=== PATIENT | male | born 1965 | race Caucasian/White ===

== ENCOUNTER 2018-10-10 17:35 | Inpatient (IN) | payer OTHER ==
[~2018-10-10] VITALS: Ht 185.4 cm; Wt 118.4 kg
[2018-10-10] MEDS ORDERED: methylPREDNISolone SOD SUCC 125 MG/2 ML VL IV ONE (18:00)
[2018-10-10] MEDS ORDERED: diphenhdrAMINE HCL 50 MG/1 ML VL IV ONE (18:00)
[2018-10-10 18:42] LABS: Albumin 3.6 g/dL (3.4-5.0); Calcium 9.1 mg/dL (8.5-10.1)
[2018-10-10 18:44] LABS: Basophils # (auto) 0.1 uL; Basophils % (auto) 0.9 % (0.0-2.0); Eosinophils # (auto) 0.3 uL; Eosinophils % (auto) 2.9 % (0.0-7.0); Hematocrit 47.5 % (41.0-53.0); Hemoglobin 15.9 g/dL (13.5-17.5); Lymphocytes # (auto) 2.5 uL; Lymphocytes % (auto) 26.4 % (10.0-50.0); Mean Corpuscular Hemoglobin 30.9 pg (28.0-32.0); Mean Corpuscular Hgb Conc. 33.5 g/dL (32.0-36.0); Mean Corpuscular Volume 92.3 fL (80.0-100.0); Monocytes # (auto) 0.9 uL; Monocytes % (auto) 9.5 % (0.0-12.0); Neutrophils # (auto) 5.8 uL; Neutrophils % (auto) 60.3 % (37.0-80.0); Platelet Count (auto) 329 10^3/uL (140-450); Red Blood Cells 5.15 10^6/uL (4.5-5.90); White Blood Cell 9.6 10^3/uL (4.4-10.8)
[2018-10-10 18:50] LABS: BUN/Creatinine Ratio 15.2; Bilirubin, Total 0.3 mg/dL (0.2-1.0); Total Protein 8.4 g/dL (6.4-8.2)
[2018-10-10 20:06] LABS: Potassium 6.4 mmol/L (3.5-5.1)
[2018-10-10] MEDS ORDERED: SODIUM BICARBONATE 8.4% INJ 50ML SYRINGE IV ONE (20:45)
[2018-10-10] MEDS ORDERED: InsuLIN REG 1unit/0.01ml Soln (100units/ml) IV ONE (20:45)
[2018-10-10] MEDS ORDERED: DEXTROSE (50%) 50ML SYRG IV ONE (20:45)
[2018-10-10] MEDS ORDERED: TEMAZEPAM 15 MG CAP PO PRN (22:30)
[2018-10-10] MEDS ORDERED: diphenhdrAMINE HCL 25 MG CAP PO PRN (22:30)
[2018-10-10] MEDS ORDERED: DOCUSATE SOD 100 MG CAP PO PRN (22:30)
[2018-10-10] MEDS ORDERED: ACETAMINOPHEN 500 MG TAB PO PRN (22:30)
[2018-10-10] MEDS ORDERED: ONDANSETRON HCL 4 MG/2 ML VIAL IV PRN (22:30)
[2018-10-10 23:00] LABS: Urine WBC None Seen /hpf (0 - 3)
[2018-10-10 23:08] LABS: Urine Bacteria NONE SEEN /hpf (None Seen); Urine Blood Negative /uL (Negative); Urine Specific Gravity 1.024 (1.001-1.035)
[2018-10-11 00:05] VITALS: BP 151/77
--- NOTE | 2018-10-11 00:05 | NUR ---
Telemetry admit from ER MELITA DILLARD admitted to Telemetry unit after SBAR received. Patient oriented to NOLA YATES RN primary RN, unit, room, bed, and unit policies regarding patient care and visiting hours. Patient now on continuous telemetry monitoring, tele box # [id number] and telemetry reading on arrival to unit is Sinus Tachy at 107BPM. Patient placed on bedside oxygen, weighed by bed scale and encouraged to call if they need something. All questions and concerns addressed, patient verbalized understanding. Note: Patient is alert and oriented, ambulatory, no distress noted and denies pain. Patient has redness to neck, back of bilateral knees, bilateral upper extremities.
[2018-10-11 05:25] VITALS: BP 130/85
--- NOTE | 2018-10-11 06:27 | NUR ---
Patient is resting in bed alert and awake, no distress noted, and patient denies pain, saturating at 93%. Patient signed belongings inventory.
[2018-10-11 07:22] LABS: Potassium 3.9 mmol/L (3.5-5.1)
[2018-10-11 07:25] LABS: BUN/Creatinine Ratio 21.1; Calcium 9.1 mg/dL (8.5-10.1)
--- NOTE | 2018-10-11 07:30 | NUR ---
Opening Shift Note Assuming care of patient at this time. Patient is awake and alert. Patient is resting in bed. Bed is locked and lowered with side rails up x2. Patient denies pain at this time. Patient shows no signs or symptoms of shortness of breath. Instructed patient on the plan of care for today and to call for assistance as needed. Call light within reach. Will continue to round hourly and as needed.
--- NOTE | 2018-10-11 08:30 | NUR ---
at bedside is at bedside at this time. Patient is on the phone, laughing and joking.
[2018-10-11 09:00] VITALS: BP 135/78
[2018-10-11] MEDS ORDERED: FAMOTIDINE 20 MG TAB PO SCH (10:00)
--- NOTE | 2018-10-11 10:00 | NUR ---
Call to pharmacy Call to pharmacy at this time. Kenalog ointment will be sent up in the bullet.
[2018-10-11] MEDS ORDERED: methylPREDNISolone SOD SUCC 40 MG/ML VL IV ONE (11:15)
[2018-10-11] MEDS: TRIAMCINOLONE ACET0.5% TOPICAL CRE 15GM TOP SCH (11:59)
[2018-10-11 17:00] VITALS: BP 132/77
--- NOTE | 2018-10-11 19:15 | NUR ---
Opening Shift Note Assuming care of patient at this time after receiving report from Lucila CARDENAS. Patient is awake and alert. Patient is resting in bed. Bed is locked and lowered with side rails up x2. Patient denies pain at this time. Patient shows no signs or symptoms of shortness of breath. Instructed patient on the plan of care for today and to call for assistance as needed. Call light within reach. Will continue to round hourly and as needed.
--- NOTE | 2018-10-11 19:51 | NUR ---
Re: Closing Shift Note Patient denies pain. Patient shows no signs of distress or shortness of breath. Report given. Will endorse care to the second shift supervisor RN.
[2018-10-11 22:00] VITALS: BP 126/81
[2018-10-11] MEDS: methylPREDNISolone SOD SUCC 40 MG/ML VL IV SCH (22:01)
[2018-10-11] MEDS: FAMOTIDINE 20 MG TAB PO SCH (22:01)
--- NOTE | 2018-10-12 04:47 | NUR ---
ROUNDS PATIENT RESTING IN BED COMFORTABLY WITH EVEN AND UNLABORED RESPIRATIONS AT 18 BPM. NO S/S OF PAIN OR DISTRESS. CALL LIGHT WITH IN REACH.
[2018-10-12 06:00] VITALS: BP 134/79
--- NOTE | 2018-10-12 06:42 | NUR ---
ROUNDS PATIENT AWAKE AND ALERT, DENIES ANY PAIN OR DISCOMFORT. CALL LIGHT WITHIN REACH.
[2018-10-12 08:15] LABS: Anion Gap 10 (5-15); BUN/Creatinine Ratio 22.2; Blood Urea Nitrogen 18 mg/dL (7-18); Calcium 8.6 mg/dL (8.5-10.1); Carbon Dioxide 23 mmol/L (21-32); Chloride 107 mmol/L (98-107); GFR African American 129 mL/min; GFR Non-African American 107 mL/min; Glucose 134 mg/dL (74-106); Potassium 4.3 mmol/L (3.5-5.1); Sodium 140 mmol/L (136-145)
[2018-10-12 08:17] LABS: Basophils # (auto) 0.1 uL; Basophils % (auto) 0.4 % (0.0-2.0); Eosinophils # (auto) 0 uL; Eosinophils % (auto) 0.1 % (0.0-7.0); Hematocrit 47.4 % (41.0-53.0); Hemoglobin 15.4 g/dL (13.5-17.5); Lymphocytes # (auto) 1.5 uL; Lymphocytes % (auto) 6.8 % (10.0-50.0); Mean Corpuscular Hgb Conc. 32.5 g/dL (32.0-36.0); Mean Corpuscular Volume 92.5 fL (80.0-100.0); Monocytes # (auto) 0.8 uL; Monocytes % (auto) 3.6 % (0.0-12.0); Neutrophils # (auto) 19.3 uL; Neutrophils % (auto) 89.1 % (37.0-80.0); Nucleated Red Blood Cells % 0.1 %; Platelet Count (auto) 363 10^3/uL (140-450); Red Blood Cells 5.12 10^6/uL (4.5-5.90); White Blood Cell 21.7 10^3/uL (4.4-10.8)
[2018-10-12 09:00] VITALS: BP 116/69
[2018-10-12] MEDS: TRIAMCINOLONE ACET0.5% TOPICAL CRE 15GM TOP SCH (10:00)
[2018-10-12] MEDS: FAMOTIDINE 20 MG TAB PO SCH (10:00)
[2018-10-12] MEDS: methylPREDNISolone SOD SUCC 40 MG/ML VL IV SCH (10:00)
[2018-10-12 12:08] VITALS: BP 132/77
[2018-10-12] MEDS ORDERED: FAM20T PO (12:36)
[2018-10-12] MEDS ORDERED: DIPH25TA54 PO (12:36)
[2018-10-12] MEDS ORDERED: METH4PAK PO (12:38)
--- NOTE | 2018-10-12 13:31 | NUR ---
Discharge Discharge instructions given as ordered. Encourage to follow up with PMD as instructed. All questions and concerns addressed. Patient verbalized understanding. IV removed with catheter intact, pressure dressing applied. Telemetry unit returned to [facility] yesterday when patient was downgraded to med surg. Patient ambulated to vehicle, refusing wheelchair, with all personal belongings, accompanied by family member. No distress noted at time of departure.
== END 2018-10-12 13:30 | disposition home or self-care (01) | DRG 385 ==
LOC: ER 17:38 → TELE 17:39 → TELE-CENTR 23:24 → CENTRAL 10-11 11:10
PROVIDERS: ADMIT Nurse Practitioner Family; ATTEND Internal Medicine
DX: L23.9 Allergic contact dermatitis, unspecified cause (principal); E87.5 Hyperkalemia; I10 Essential (primary) hypertension; E66.9 Obesity, unspecified; Z82.49 Family history of ischemic heart disease and other diseases of the circulatory system; Z79.899 Other long term (current) drug therapy; Z68.34 Body mass index [BMI] 34.0-34.9, adult
CPT/HCPCS: 36415; 71046; 80048; 80053; 81001; 85025; 93005; 96374; 96375; G0378; J1815

== ENCOUNTER 2018-11-25 19:16 | Emergency (ER) | payer OTHER ==
[~2018-11-25] VITALS: Ht 182.9 cm; Wt 113.4 kg
[~2018-11-25 19:16] MED LIST: DIPH25TA54 PO; FAM20T PO; METH4PAK PO
[2018-11-25 22:07] VITALS: BP 148/93
[2018-11-25] MEDS ORDERED: diphenhdrAMINE HCL 50 MG/1 ML VL IM ONE (22:15)
[2018-11-25] MEDS ORDERED: EPINEPHrine HCL 1 MG/1 ML AMP SC ONE (22:15)
[2018-11-25] MEDS ORDERED: methylPREDNISolone SOD SUCC 125 MG/2 ML VL IM ONE (22:15)
[2018-11-25] MEDS ORDERED: FAMOTIDINE 20 MG TAB PO ONE (22:15)
== END 2018-11-25 23:24 | disposition home or self-care (01) ==
LOC: ER 19:23
DX: L23.9 Allergic contact dermatitis, unspecified cause (principal); I10 Essential (primary) hypertension
CPT/HCPCS: 96372; 99283; J0171; J1200; J2930

== ENCOUNTER 2019-08-29 12:09 | Emergency (ER) | payer OTHER ==
[~2019-08-29] VITALS: Ht 185.4 cm; Wt 108.9 kg
[2019-08-29 12:12] VITALS: BP 159/99
== END 2019-08-29 14:13 | disposition home or self-care (01) ==
LOC: ER 12:09
DX: S51.012A Laceration without foreign body of left elbow, initial encounter (principal); I10 Essential (primary) hypertension; V87.8XXA Person injured in other specified noncollision transport accidents involving motor vehicle (traffic), initial encounter; Y93.89 Activity, other specified; Y92.488 Other paved roadways as the place of occurrence of the external cause; Y99.8 Other external cause status

== ENCOUNTER 2019-09-29 10:18 | Emergency (ER) | payer MEDICAID, OTHER ==
[~2019-09-29] VITALS: Ht 185.4 cm; Wt 108.9 kg
[2019-09-29 10:31] VITALS: BP 123/84
[2019-09-29] MEDS ORDERED: EPINEPHrine HCL 1 MG/1 ML AMP SC ONE (10:45)
[2019-09-29] MEDS ORDERED: methylPREDNISolone SOD SUCC 125 MG/2 ML VL IM ONE (10:45)
== END 2019-09-29 11:02 | disposition home or self-care (01) ==
LOC: ER 10:18
DX: T78.40XA Allergy, unspecified, initial encounter (principal); X58.XXXA Exposure to other specified factors, initial encounter
CPT/HCPCS: 96372; 99284; J0171; J2930

== ENCOUNTER 2019-09-30 14:06 | Emergency (ER) | payer OTHER ==
[~2019-09-30] VITALS: Ht 185.4 cm; Wt 108.9 kg
[2019-09-30 14:12] VITALS: BP 173/92
[2019-09-30] MEDS ORDERED: BACITRACIN TOP OINT 1 UD PKG TOP ONE (15:25)
[2019-09-30] MEDS ORDERED: NEOMYCIN-BACITRACIN-POLYM UNITDOSE PKG TOP OINT TOP ONE (15:45)
== END 2019-09-30 15:54 | disposition home or self-care (01) ==
LOC: ER 14:06
DX: S61.203A Unspecified open wound of left middle finger without damage to nail, initial encounter (principal); W27.0XXA Contact with workbench tool, initial encounter; Y93.89 Activity, other specified; Y92.89 Other specified places as the place of occurrence of the external cause; Y99.8 Other external cause status
CPT/HCPCS: 29130; 73130

== ENCOUNTER 2021-03-13 14:33 | Emergency (ER) | payer OTHER ==
[~2021-03-13] VITALS: Ht 185.4 cm; Wt 111.1 kg
[~2021-03-13 14:33] MED LIST changes: -FAM20T PO; +FAMO20TA10 PO
[2021-03-13 20:05] VITALS: BP 118/71
== END 2021-03-13 20:22 | disposition home or self-care (01) ==
LOC: ER 14:33
DX: U07.1 COVID-19 (principal); I10 Essential (primary) hypertension
CPT/HCPCS: 36415; 71046; 87426; 93005